=== PATIENT | female | born 1985 | race Caucasian/White ===

== ENCOUNTER 2021-07-19 23:04 | Emergency (ER) | payer BC, OTHER ==
[2021-07-19 23:10] VITALS: BP 122/88; PULSE 104; TEMP 98.6; BMI 31.7
[2021-07-20] MEDS ORDERED: DEXAMETHASONE 4 MG TABLET (FP) PO ONE (00:25)
[2021-07-20] MEDS ORDERED: DEXAMETHASONE SOD PHOSPHATE 10 MG/1 ML VIAL ONE (00:32)
[2021-07-20] MEDS ORDERED: LACTATED RINGERS SOLUTION 1000 ML INFUS.BAG IV ONE (01:52)
== END 2021-07-20 03:14 | disposition home or self-care (01) ==
LOC: JER 23:04
DX: L50.0 Allergic urticaria (principal); T78.40XA Allergy, unspecified, initial encounter
CPT/HCPCS: 87651; 99283-25